=== PATIENT | female | born 1940 | race Caucasian/White ===

== ENCOUNTER 2018-08-07 14:57 | Emergency (ER) | payer MEDICARE, BC ==
[2018-08-07 15:22] LABS: #Basophils 0.2 thou/uL (0.0-0.2); #Eosinphils 0.3 thou/uL (0.0-0.7); #Monocytes 0.9 thou/uL (0.11-0.59); %Basophils 1.6 % (0.0-1.0); %Eosinophils 2.8 % (0.0-10.0); %Lymphocytes 43.8 % (21.0-51.0); %Monocytes 7.5 % (0.0-10.0); %Neutrophils 44.3 % (42.0-75.0); Hemoglobin 13.2 g/dL (12.0-16.0); Mean Corpuscular HGB CONC 32.2 g/dL (32.0-36.0); Mean Corpuscular Hemoglobin 31.5 pg (27.0-31.0); Mean Corpuscular Volume 97.8 fL (78.0-98.0); Mean Platelet Volume 10.1 fL (7.4-10.4); Platelet Count 228 thou/uL (130-400); RBC Distribution Width 11.9 % (11.5-14.5); Red Blood Cell (RBC) Count 4.18 mill/uL (4.20-5.40); White Blood Cell (WBC) Count 11.3 thou/uL (4.8-10.8)
[2018-08-07 15:28] LABS: INR-International Normal Ratio 1.1; Prothrombin Time 13.9 SEC (12.0-14.7)
[2018-08-07 15:31] LABS: ALT (SGPT) 25 U/L (8-55); AST (SGOT) 30 U/L (5-34); Albumin 4.4 g/dL (3.4-4.8); Alkaline Phosphatase 76 U/L (40-150); Anion Gap 17 mmol/L (10-20); BUN (Urea Nitrogen) 19 mg/dL (9.8-20.1); Bilirubin, Total 0.5 mg/dL (0.2-1.2); Calc. Creatinine Clearance 0 mL/min (70-130); Calcium 10.5 mg/dL (7.8-10.44); Carbon Dioxide 22 mmol/L (23-31); Chloride 103 mmol/L (98-107); Estimated GFR-MDRD 48; Glucose 104 mg/dL (83-110); Potassium 3.2 mmol/L (3.5-5.1); Protein, Total 7.4 g/dL (6.0-8.3); Sodium 139 mmol/L (136-145)
[2018-08-07 15:32] LABS: Troponin I 0.014 ng/mL (< 0.028)
--- NOTE | 2018-08-07 16:14 | CT ---
NONCONTRAST CT HEAD: 08/07/18 HISTORY: Sudden onset of difficulty getting words out. Altered mental status. Stroke alert. History of ocular migraines. COMPARISON: None available. FINDINGS: There is scattered areas of diminished attenuation of the periventricular white matter which are nons pecific but likely attributable to chronic small vessel ischemic changes. There is a punctate low den sity focus within the anterior limb right internal capsule which could represent a lacunar infarction of indeterminate age or possibly artifactual. There is no evidence of an acute cortical infarction, hemorrhage, mass effect, or midline shift. Mild cerebral volume loss is present. The ventricular syst em is normal in size, shape and position. The visualized paranasal sinuses and mastoid air cells are clear. Calvarial fractures have a normal appearance. IMPRESSION: 1. No acute intracranial abnormalities demonstrated. 2. Chronic small vessel ischemic change and cerebral volume loss. 3. 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 4. Above findings discussed with Dr. Howard in the Emergency Department on 08/07/18 at 1517 hours. POS: [facility]
== END 2018-08-07 17:23 | disposition short-term general hospital (02) ==
LOC: NAV ERS 14:57
DX: R41.82 Altered mental status, unspecified (principal); I10 Essential (primary) hypertension; G43.909 Migraine, unspecified, not intractable, without status migrainosus; Z87.891 Personal history of nicotine dependence; Z79.899 Other long term (current) drug therapy
CPT/HCPCS: 36416; 70450; 80053; 82553; 84484; 85025; 85610; 85730; 93005